=== PATIENT | female | born 1950 | race Caucasian/White ===

== ENCOUNTER → 2019-01-20 | Outpatient (CLI) | payer OTHER ==
[~2019-01-20] VITALS: Ht 162.6 cm; Wt 70.3 kg
[~2019-01-20] MED LIST: ASPIR 8181 MG PO; CALCIUM 500 +1 EAC5 PO; FISH OIL 1,001000 M2 PO; FLONASE 0.05%50 MCG NASAL; LIPITOR10 MG PO
--- NOTE | 2019-01-22 09:07 | PATH ---
[facility] [place] [address] PATHOLOGY RPT PROCEDURE Name: JESSICA CONWAY Aarti Room #: REG [facility] M.R.#: [id number] ������������������ Admission: 01/20/19 ������������������ Date of : 50 Discharge: Report #: [id number] Path Case #: [id number] [facility] Accession Number: [id number] . 01 Material submitted: . PART A: cecum - POLYP AT CECUM X2 PART B: colon - POLYP AT SIGMOID COLON. Modifiers: sigmoid . 01 Clinical history: . Pre-OP DX: Family HX colon cancer Post-OP DX: Colon polyps . 02 Diagnosis: A. Polyp x2, cecum, endoscopic biopsy: - One fragment showing a tubular adenoma without high-grade dysplasia. - Second fragment showing reactive changes along with a lymphoid aggregate; negative for dysplasia. . B. Polyp, at sigmoid colon, endoscopic biopsy: - Compatible with hyperplastic polyp. - Negative for dysplasia. . (IUV:[place]; 01/21/2019) MBR/01/21/2019 . 02 Electronically signed: . Anna Hagen MD, Pathologist NPI- [id number] . 01 Gross description: . A. Received in formalin labeled "Jessica Conway, polyp at cecum x2," are 3 segments of damon soft tissue measuring 0.7 x 0.5 x 0.2 cm in aggregate dimensions and ranging from 0.2 to 0.4 cm in maximum dimension. The specimen is submitted entirely in cassette A1. . B. Received in formalin labeled "Jessica Conway, polyp at sigmoid colon," are 3 segments of damon soft tissue measuring 0.8 x 0.6 x 0.2 cm in aggregate dimensions and ranging from 0.3 to 0.5 cm in maximum dimension. The specimen is submitted entirely in cassette B1. (TSD; 01/20/2019) TOB/TOB . 02 Pathologist provided ICD-10: D12.0, K63.5 . 02 CPT . 167103, [id number] [place] [address] PATHOLOGY RPT PROCEDURE Name: JESSICA CONWAY Room #: REG [facility].#: [id number] ������������������ Admission: 01/20/19 ������������������ Date of : 50 Discharge: Report #: [id number] Path Case #: [id number] Specimen Comment: A courtesy copy of this report has been sent to Specimen Comment: [phone], . Specimen Comment: Report sent to / DR COOPER Performed at: [address] [facility], [place], [place] [id number] MD Angel Harden MD Phone: [phone] Performed at: [address] [facility] [id number] MD Anna Hagen MD Phone: [phone]
== END | disposition home or self-care (01) ==
LOC: GI 09:20
DX: Z12.11 Encounter for screening for malignant neoplasm of colon (principal); Z80.0 Family history of malignant neoplasm of digestive organs; D12.0 Benign neoplasm of cecum; K63.5 Polyp of colon; E78.5 Hyperlipidemia, unspecified; Z98.890 Other specified postprocedural states; Z98.41 Cataract extraction status, right eye; Z98.42 Cataract extraction status, left eye; Z79.899 Other long term (current) drug therapy; Z79.82 Long term (current) use of aspirin
CPT/HCPCS: 62110; 62900